=== PATIENT | female | born 1985 | race Hispanic/Latino ===

== ENCOUNTER 2017-05-26 08:05 | Day surgery (SDC) | payer BC, OTHER ==
[2017-05-25 14:45] VITALS: BMI 19.3
[2017-05-26] MEDS ORDERED: Lidocaine 4% (Laryng-O-Jet) Kit MM ONE (08:33)
[2017-05-26] MEDS ORDERED: Propofol 10 mg/ml Inj (20 ML) ONE ×2 (08:33→09:55)
[2017-05-26] MEDS ORDERED: Succinylcholine 200 mg/10 ml Inj IV ONE (08:33)
[2017-05-26] MEDS ORDERED: Maxitrol Opht Susp ONE (08:58)
[2017-05-26 09:05] VITALS: RESP 18
[2017-05-26] MEDS ORDERED: Lactated Ringer's 1,000 ML IV ONE (09:30)
[2017-05-26] MEDS ORDERED: Midazolam 2 MG/2 ML VIAL ONE (09:41)
[2017-05-26] MEDS ORDERED: Dexamethasone 4 mg/1 ml ONE (09:54)
[2017-05-26] MEDS ORDERED: DiphenhydrAMINE 50 mg/ml Inj ONE (09:55)
[2017-05-26] MEDS ORDERED: Lactated Ringer's 1,000 ML IV SCH (10:28)
[2017-05-26] MEDS ORDERED: HYDROmorphone 0.5 mg/0.5 ml ISec IVP PRN (10:28)
[2017-05-26] MEDS ORDERED: Oxycodone/Acetaminophen 5/325 mg Tab PO ONE (11:19)
[2017-05-26 13:07] VITALS: O2SAT 98
[2017-05-26 14:15] VITALS: BP 122/49; PULSE 76; TEMP 97.6
--- NOTE | 2017-06-10 02:17 | OP ---
PROCEDURE DATE: PREOPERATIVE DIAGNOSIS: Menometrorrhagia. POSTOPERATIVE DIAGNOSIS: Menometrorrhagia. PROCEDURE: Diagnostic hysteroscopy, D&C. SURGEON: Dr. Clara Lynch ESTIMATED BLOOD LOSS: Minimal. The patient was straight catheterized prior to starting the procedure. She was given approximately 200 mL of D5 LR intraoperatively. OPERATIVE FINDINGS: Normal external female genitalia. Urethra normal. Cervix smooth. Vagina pink. No adnexal masses identified. Hysteroscopic evaluation revealed no intrauterine masses. There was polypoid tissue in the right corneal region, both ostia were visualized, photomicrograph was taken for documentation. DESCRIPTION OF PROCEDURE: After informed consent was obtained, the patient was taken to the operating room where she was given general anesthesia, the patient then prepped and draped in the usual sterile fashion. A weighted speculum was inserted into the vagina, cervix was visualized and grasped with a single-toothed tenaculum. The cervix was then gently dilated and the hysteroscope was then inserted into the uterine cavity with the findings noted above. There was a polypoid tissue noted in the right corneal region. The instruments were removed and sharp curettage was performed. All specimens were sent to pathology. Hysteroscope was inserted and polypoid lesion was removed. All instruments were then removed from the uterine cavity and vagina. Hemostasis was noted at the site. The patient was awakened from general anesthesia and taken to the recovery room in awake and stable condition. Clara Lynch MD
--- NOTE | 2017-06-23 10:53 | CP.SDSHP ---
Same Day Surgery H & P - Allergies Allergies: Allergies tomato Allergy (Verified 05/26/17 09:09) NAUSEA abdominalpain Short Stay Discharge - Short Stay Discharge Admitting Diagnosis/Reason for Visit: N92.5/N84.0 Referrals: Berna Garg MD [Primary Care Provider] - Additional Instructions (Diet, Activity): S/p Hysteroscopy D and C doing well d/c home f/u with Syed in 1 week NPV
== END 2017-05-26 14:00 | disposition home or self-care (01) ==
LOC: H.OPSURG 08:05
PROVIDERS: ATTEND Obstetrics & Gynecology Gynecology
DX: N92.5 Other specified irregular menstruation (principal); N84.0 Polyp of corpus uteri
CPT/HCPCS: 58558; 88305; J0330; J1100; J1200; J2001; J2250; J2405; J2704; J2765; J3010; J7030; J7120